=== PATIENT | male | born 1960 | race African-American/Black ===

== ENCOUNTER 2016-08-15 18:05 | Emergency (ER) | payer MEDICAID ==
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
[2016-08-15 19:31] LABS: ABSOLUTE BASOPHILS # (AUTO) 0.1 10^3/uL (0.0-0.2); ABSOLUTE EOSINOPHILS # (AUTO) 0.2 10^3/uL (0.0-0.6); ABSOLUTE LYMPHOCYTES (AUTO) 2.6 10^3/uL (0.5-4.7); ABSOLUTE MONOCYTES (AUTO) 0.6 10^3/uL (0.1-1.4); ABSOLUTE NEUT (AUTO) 3.9 10^3/uL (1.7-8.2); BASOPHILS % (AUTO) 1.3 % (0-2); EOSINOPHILS % (AUTO) 3.1 % (0-6); HEMATOCRIT 40.9 % (37.9-51.0); HEMOGLOBIN 13.4 g/dL (13.5-17.0); HGB HCT DIFFERENCE -0.7; LYMPHOCYTES % (AUTO) 34.7 % (13-45); MEAN CORPUSCULAR HEMOGLOBIN 28.5 pg (27.0-33.4); MEAN CORPUSCULAR HGB CONC 32.7 g/dL (32.0-36.0); MEAN CORPUSCULAR VOLUME 87 fl (80-97); MONOCYTES % (AUTO) 7.8 % (3-13); RED CELL DISTRIBUTION WIDTH 14.5 % (11.5-14.0); SEGMENTED NEUTROPHILS % (AUTO) 53.1 % (42-78); WHITE BLOOD COUNT 7.4 10^3/uL (4.0-10.5)
[2016-08-15 19:48] LABS: ALANINE AMINOTRANSFERASE 44 U/L (21-72); ALBUMIN 4.6 g/dL (3.5-5.0); ALKALINE PHOSPHATASE 74 U/L (38-126); ANION GAP 11 (5-19); ASPARTATE AMINO TRANSFERASE 28 U/L (17-59); BILIRUBIN,TOTAL 0.6 mg/dL (0.2-1.3); BLOOD UREA NITROGEN 18 mg/dL (7-20); CALCIUM 9.9 mg/dL (8.4-10.2); CARBON DIOXIDE 29 mmol/L (22-30); CHLORIDE 103 mmol/L (98-107); CREATININE RESULT 0.88 mg/dL (0.52-1.25); GLUCOSE 214 mg/dL (75-110); LIPASE 86.3 U/L (23-300); POTASSIUM 4.5 mmol/L (3.6-5.0); SODIUM 142.5 mmol/L (137-145); TOTAL PROTEIN 7.6 g/dL (6.3-8.2)
--- NOTE | 2016-08-15 22:14 | ER Document Report ---
ED Blood Sugar Problem - General Mode of Arrival: Ambulatory Information source: Patient TRAVEL OUTSIDE OF THE [place] IN LAST 30 DAYS: No - HPI Patient complains to provider of: hyperglycemia Onset: This afternoon Associated symptoms: Other - see above <ARTURO SALCIDO - Last Filed: 08/15/16 23:28> - General Mode of Arrival: Ambulatory TRAVEL OUTSIDE OF THE [place] IN LAST 30 DAYS: No <YAHAIRA OVIEDO - Last Filed: 08/16/16 03:49> - General Chief Complaint: High Blood Sugar Stated Complaint: SLUGGISH,EYES BURNING Notes: 56-year-old male presents to the ED complaining of hyperglycemia which he noticed earlier today. Patient states that he was feeling sluggish yesterday and noticed that his blood sugar was around 400. Patient took 1 or 2 old metformin pills and his blood sugar came down to 220. Patient states that his blood sugar usually stays around 129 when he checks, but states that he does not checked often. Patient is additionally complaining of bilateral foot pain and tingling to the soles of his feet. Patient denies cough, congestion, dysuria, abdominal pain, vomiting, and diarrhea. Patient states that he went to an urgent care earlier today and was told to come to the emergency department instead. Patient states that the urgent care is currently his primary care. (ARTURO SALCIDO) - Related Data Allergies/Adverse Reactions: No Known Allergies Allergy (Verified 08/15/16 18:39) Past Medical History - General Information source: Patient - Social History Smoking Status: Current Every Day Smoker Chew tobacco use (# tins/day): No Frequency of alcohol use: None Drug Abuse: None Family History: Reviewed & Not Pertinent Patient has suicidal ideation: No Patient has homicidal ideation: No - Past Medical History Cardiac Medical History: Reports: Hx Hypertension <ARTURO SALCIDO - Last Filed: 08/15/16 23:28> - General Information source: Patient - Social History Smoking Status: Current Every Day Smoker Chew tobacco use (# tins/day): No Frequency of alcohol use: None Drug Abuse: None Family History: Reviewed & Not Pertinent Patient has suicidal ideation: No Patient has homicidal ideation: No - Past Medical History Cardiac Medical History: Reports: Hx Hypertension Renal/ Medical History: Denies: Hx Peritoneal Dialysis - Immunizations Hx Diphtheria, Pertussis, Tetanus Vaccination: Yes <YAHAIRA OVIEDO - Last Filed: 08/16/16 03:49> Review of Systems - Review of Systems Constitutional: No symptoms reported EENT: No symptoms reported Cardiovascular: No symptoms reported Respiratory: No symptoms reported. denies: Cough Gastrointestinal: No symptoms reported. denies: Abdominal pain, Diarrhea, Vomiting Genitourinary: No symptoms reported. denies: Dysuria Male Genitourinary: No symptoms reported Musculoskeletal: See HPI, Other - bilateral foot pain and tingling to the soles of his feet Skin: No symptoms reported Hematologic/Lymphatic: No symptoms reported Neurological/Psychological: See HPI, Tingling - bilateral tingling sensation to the soles of the feet -: Yes All other systems reviewed and negative <ARTURO SALCIDO - Last Filed: 08/15/16 23:28> Physical Exam - Vital signs Interpretation: Normal - General General appearance: Alert In distress: None - HEENT Head: Normocephalic, Atraumatic Eyes: Normal Extraocular movements intact: Yes Pupils: PERRL - Respiratory Respiratory status: No respiratory distress Breath sounds: Normal - Cardiovascular Rhythm: Regular Heart sounds: Normal auscultation - Abdominal Inspection: Normal - Back Back: Normal - Extremities General upper extremity: Normal inspection, Normal ROM General lower extremity: Normal ROM. No: Normal inspection - see neuro exam below Foot: No: Normal - see neuro exam below - Neurological Neuro grossly intact: Yes Cognition: Normal Orientation: AAOx4 Daniel Coma Scale Eye Opening: Spontaneous Daniel Coma Scale Verbal: Oriented [place] Coma Scale Motor: Obeys Commands [place] Coma Scale Total: 15 Speech: Normal Sensory: Other - altered sensation to soles of feet bilaterally. No: Normal - Psychological Associated symptoms: Normal affect, Normal mood - Skin Skin Temperature: Warm Skin Moisture: Dry Skin Color: Normal <ARTURO SALCIDO - Last Filed: 08/15/16 23:28> Course - Laboratory Result Diagrams: 08/15/16 19:05 08/15/16 19:05 <ARTURO SALCIDO - Last Filed: 08/15/16 23:28> - Laboratory Result Diagrams: 08/15/16 19:05 08/15/16 19:05 <YAHAIRA OVIEDO - Last Filed: 08/16/16 03:49> - Re-evaluation Re-evalutation: 08/15 Patient is a 56-year-old male who comes in with hyperglycemia. Patient will be restarted on his metformin. Patient has been educated about counting carbohydrates and avoiding simple sugars. Patient will also be started on gabapentin at night for his neuropathy. He is to follow-up with the primary care doctor. Understands agrees with plan. Stable for discharge home. No evidence for infection anywhere. (YAHAIRA OVIEDO) - Vital Signs Vital signs: Temp Pulse Resp BP Pulse Ox 97.6 F 82 16 140/79 H 99 08/15/16 18:30 08/15/16 22:20 08/15/16 22:20 08/15/16 22:20 08/15/16 22:20 (ARTURO SALCIDO) (YAHAIRA OVIEDO) - Laboratory Laboratory results interpreted by me: 08/15/16 08/15/16 08/15/16 19:01 19:05 19:05 Hgb 13.4 L RDW 14.5 H Glucose 214 H POC Glucose 211 H (ARTURO SLACIDO) (YAHAIRA OVIEDO) Discharge <ARTURO SALCIDO - Last Filed: 08/15/16 23:28> <YAHAIRA OVIEDO - Last Filed: 08/16/16 03:49> - Discharge Clinical Impression: Hyperglycemia due to type 2 diabetes mellitus Qualifiers: Diabetes mellitus fci insulin use: without fci use Qualified Code(s ): E11.65 - Type 2 diabetes mellitus with hyperglycemia Condition: Stable Disposition: HOME, SELF-CARE Instructions: Diabetes ([facility]), High Blood Pressure ([facility]), Family Physicians / Practices Prescriptions: Gabapentin 300 mg PO QHS #30 capsule Lisinopril 10 mg PO QHS #30 tablet Metformin HCl [Glucophage] 500 mg PO BID #60 tablet Forms: Return to Work Scribe Attestation: 08/16/16 03:49 I personally performed the services described in the documentation, reviewed and edited the documentation which was dictated to the scribe in my presence, and it accurately records my words and actions. (YAHAIRA OVIEDO) Scribe Documentation - Scribe Written by Hortensiaibe:: Leila Be, 08/15/2016 23:28 acting as scribe for :: Mary <ARTURO SALCIDO - Last Filed: 08/15/16 23:28>
[2016-08-15 22:20] VITALS: BP 140/79
== END 2016-08-15 22:20 | disposition home or self-care (01) ==
LOC: ER 18:05
DX: E11.65 Type 2 diabetes mellitus with hyperglycemia (principal); M79.672 Pain in left foot; M79.671 Pain in right foot; F17.210 Nicotine dependence, cigarettes, uncomplicated
CPT/HCPCS: 36415; 80053; 82962; 83690; 85025; 87086; 99283

== ENCOUNTER 2017-03-24 22:28 | Emergency (ER) | payer SELFPAY ==
[2017-03-24 23:06] VITALS: BP 144/87
[2017-03-24] MEDS ORDERED: CIPROFLOXACIN HCL/DEXAMETH OTIC DROP 7.5 ML AS ONE (23:32)
--- NOTE | 2017-03-24 23:33 | ER Document Report ---
ED General - General Chief Complaint: Ear Pain Stated Complaint: PAIN IN LEFT EAR Time Seen by Provider: 03/24/17 23:25 Notes: Patient is a 56-year-old male with past medical history of diabetes who presents with 1 week of left ear pain. He does described as a dull, constant, aching pain. He has tried flushing with hydrogen peroxide without improvement of the pain. Nothing worsens the pain. He states that this did start after he felt he had developed a sinus infection with a persistent draining left nostril and pain over the left maxillary sinus. States that then this moved into his left ear and has gotten worse since that time. He notes that he has diminished hearing on that side. He also believes he has had some blood draining from the ear. He denies any fever or constitutional symptoms. He has not seen a primary care doctor regarding today's concerns. TRAVEL OUTSIDE OF THE [place] IN LAST 30 DAYS: No - Related Data Allergies/Adverse Reactions: No Known Allergies Allergy (Verified 08/15/16 18:39) Past Medical History - General Information source: Patient - Social History Smoking Status: Current Every Day Smoker Frequency of alcohol use: None Drug Abuse: None Family History: Reviewed & Not Pertinent Patient has suicidal ideation: No Patient has homicidal ideation: No - Past Medical History Cardiac Medical History: Reports: Hx Hypertension Renal/ Medical History: Denies: Hx Peritoneal Dialysis - Immunizations Hx Diphtheria, Pertussis, Tetanus Vaccination: Yes Review of Systems - Review of Systems Notes: Constitutional: Negative for fever. HENT: Positive for left ear pain Eyes: Negative for visual changes. Cardiovascular: Negative for chest pain. Respiratory: Negative for shortness of breath. Gastrointestinal: Negative for abdominal pain, vomiting or diarrhea. Genitourinary: Negative for dysuria. Musculoskeletal: Negative for back pain. Skin: Negative for rash. Neurological: Negative for headaches, weakness or numbness. 10 point ROS negative except as marked above and in HPI. Physical Exam - Vital signs Vitals: Temp Pulse Resp BP Pulse Ox 69 F L 69 18 144/87 H 98 03/24/17 23:03 03/24/17 23:03 03/24/17 23:03 03/24/17 23:03 03/24/17 23:03 Interpretation: Hypertensive Notes: PHYSICAL EXAMINATION: GENERAL: Well-appearing, well-nourished and in no acute distress. HEAD: Atraumatic, normocephalic. EYES: sclera anicteric, conjunctiva are normal. ENT: Moist mucous membranes. The left TM is initially obscured by what appears to be a scab in the ear canal. This was removed and the TM was able to visualize. There is an apparent purulent effusion and what appears to be a tympanic membrane perforation. Right TM is clear. No pain over the mastoids bilaterally. NECK: Normal range of motion. No cervical or submandibular lymphadenopathy. LUNGS: Normal work of breathing HEART: 2+ radial pulses bilaterally EXTREMITIES: no pitting or edema. No cyanosis. NEUROLOGICAL: No focal neurological deficits. Moves all extremities spontaneously and on command. PSYCH: Normal mood, normal affect. SKIN: Warm, Dry, normal turgor, no rashes or lesions noted. Course - Re-evaluation Re-evalutation: 03/24/17 23:29 Patient presents with left ear pain as well as loss of hearing. Otoscopic examination does show a clot in the left ear that initially precludes appropriate assessment of the tympanic membrane. After removal of the clot and irrigation of the canal, the TM was visualized and appears to have a purulent effusion with a likely associated perforation which would explain the clot and blood in the ear canal. Suspect likely initial infectious source given patient' s medical history. He is otherwise well in appearance. Remainder of exam is unremarkable. No pain over the mastoid. Will start on oral antibiotics and Ciprodex drops. At this time will discharge with return precautions and follow- up recommendations. Verbal discharge instructions given a the bedside and opportunity for questions given. Medication warnings reviewed. Patient is in agreement with this plan and has verbalized understanding of return precautions and the need for primary care follow-up in the next 24-72 hours. - Vital Signs Vital signs: Temp Pulse Resp BP Pulse Ox 69 F L 69 18 144/87 H 98 03/24/17 23:03 03/24/17 23:03 03/24/17 23:03 03/24/17 23:03 03/24/17 23:03 Discharge - Discharge Clinical Impression: Left otitis media with spontaneous rupture of eardrum Condition: Good Disposition: HOME, SELF-CARE Additional Instructions: Please take the eardrops, 3 drops twice daily in the left ear. Take the amoxicillin as prescribed until completed. He may take ibuprofen per box instructions as needed for pain. Follow-up with an ear nose and throat doctor particular your symptoms are not improving within the next 1 week. Return if you develop fever, weakness, numbness, severe headache, worsening of your pain, or any other symptoms that are worrisome to you. Prescriptions: Amoxicillin Trihydrate [Amoxil 500 mg Capsule] 500 mg PO TID #30 cap
== END 2017-03-24 23:43 | disposition home or self-care (01) ==
LOC: ER 22:28
DX: H66.92 Otitis media, unspecified, left ear (principal); H72.92 Unspecified perforation of tympanic membrane, left ear; F17.200 Nicotine dependence, unspecified, uncomplicated; I10 Essential (primary) hypertension
CPT/HCPCS: 99282; J3490

== ENCOUNTER 2019-06-18 20:16 | Emergency (ER) | payer SELFPAY ==
[2019-06-18] MEDS ORDERED: NORMAL SALINE 1000 ML 1,000 ML IV ONE (20:33)
--- NOTE | 2019-06-18 20:35 | ER Document Report ---
ED Medical Screen (RME) - General Stated Complaint: BLOOD SUGAR HIGH Time Seen by Provider: 06/18/19 20:24 Mode of Arrival: Ambulatory Information source: Patient Notes: Patient presents complaining of urinary frequency for the past 2 weeks. Patient reports increased thirst as well. Patient reports history of diabetes although he has been off of his metformin for several months as he did not feel that he needed the medication anymore. Patient reports checking his blood sugar this evening it was over 500. Patient denies any abdominal tenderness nausea or vomiting. I have greeted and performed a rapid initial assessment of this patient. A comprehensive ED assessment and evaluation of the patient, analysis of test results and completion of the medical decision making process will be conducted by additional ED providers. TRAVEL OUTSIDE OF THE [place] IN LAST 30 DAYS: No - Related Data Allergies/Adverse Reactions: No Known Allergies Allergy (Verified 08/15/16 18:39) Past Medical History - Past Medical History Cardiac Medical History: Reports: Hx Hypertension Renal/ Medical History: Denies: Hx Peritoneal Dialysis - Immunizations Hx Diphtheria, Pertussis, Tetanus Vaccination: Yes Physical Exam - Vital signs Vitals: Temp Pulse Resp BP Pulse Ox 97.8 F 86 16 155/83 H 99 06/18/19 20:21 06/18/19 20:21 06/18/19 20:21 06/18/19 20:21 06/18/19 20:21 - General General appearance: Appears well, Alert In distress: None - Abdominal Tenderness: Nontender Course - Vital Signs Vital signs: Temp Pulse Resp BP Pulse Ox 97.8 F 86 16 155/83 H 99 06/18/19 20:21 06/18/19 20:21 06/18/19 20:21 06/18/19 20:21 06/18/19 20:21
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
[2019-06-18 21:13] LABS: ABSOLUTE BASOPHILS # (AUTO) 0.1 10^3/uL (0.0-0.2); ABSOLUTE EOSINOPHILS # (AUTO) 0.2 10^3/uL (0.0-0.6); ABSOLUTE LYMPHOCYTES (AUTO) 2.1 10^3/uL (0.5-4.7); ABSOLUTE MONOCYTES (AUTO) 0.6 10^3/uL (0.1-1.4); ABSOLUTE NEUT (AUTO) 3.4 10^3/uL (1.7-8.2); BASOPHILS % (AUTO) 1.1 % (0-2); EOSINOPHILS % (AUTO) 2.4 % (0-6); HEMATOCRIT 40.2 % (37.9-51.0); HEMOGLOBIN 13.6 g/dL (13.5-17.0); LYMPHOCYTES % (AUTO) 32.7 % (13-45); MEAN CORPUSCULAR HEMOGLOBIN 29.4 pg (27.0-33.4); MEAN CORPUSCULAR HGB CONC 33.7 g/dL (32.0-36.0); MEAN CORPUSCULAR VOLUME 87 fl (80-97); MONOCYTES % (AUTO) 9.4 % (3-13); PLATELET COUNT 167 10^3/uL (150-450); RED CELL DISTRIBUTION WIDTH 13.8 % (11.5-14.0); SEGMENTED NEUTROPHILS % (AUTO) 54.4 % (42-78); TOTAL CELLS COUNTED % (AUTO) 100 %; VENOUS BLOOD BASE EXCESS 1.3 mmol/L; VENOUS BLOOD PCO2 41.6 mmHg (35-63); VENOUS BLOOD PH 7.41 (7.30-7.42); WHITE BLOOD COUNT 6.3 10^3/uL (4.0-10.5)
[2019-06-18 21:27] LABS: APPEARANCE,URINE SLIGHTLY-CLOUDY; BILIRUBIN,URINE NEGATIVE (NEGATIVE); COLOR,URINE STRAW; GLUCOSE, URINE >=500 mg/dL (NEGATIVE); KETONES,URINE NEGATIVE (NEGATIVE); LEUKOCYTE ESTERASE,URINE LARGE (NEGATIVE); NITRITE,URINE NEGATIVE (NEGATIVE); PROTEIN,URINE NEGATIVE (NEGATIVE); URINE SPECIFIC GRAVITY 1.032; UROBILINOGEN,URINE NEGATIVE mg/dL (<2.0)
[2019-06-18 21:29] LABS: ALBUMIN 4.3 g/dL (3.5-5.0); ALKALINE PHOSPHATASE 148 U/L (38-126); ANION GAP 14 (5-19); ASPARTATE AMINO TRANSFERASE 21 U/L (17-59); BILIRUBIN,DIRECT 0.2 mg/dL (0.0-0.4); BILIRUBIN,TOTAL 0.6 mg/dL (0.2-1.3); BLOOD UREA NITROGEN 17 mg/dL (7-20); CALCIUM 9.6 mg/dL (8.4-10.2); CARBON DIOXIDE 25 mmol/L (22-30); CHLORIDE 96 mmol/L (98-107); POTASSIUM 4.3 mmol/L (3.6-5.0); TOTAL PROTEIN 7.7 g/dL (6.3-8.2)
[2019-06-18] MEDS ORDERED: RINGERS SOLUTION,LACTATED 1,000 ML IV ONE (21:38)
[2019-06-18 21:42] LABS: GLUCOSE 600 mg/dL (75-110)
[2019-06-19 00:13] LABS: CHLAM PCR NOT DETECTED (NOT DETECT)
[2019-06-19 01:36] VITALS: BP 124/62
[2019-06-19 02:16] LABS: APPEARANCE,URINE SLIGHTLY-CLOUDY; BILIRUBIN,URINE NEGATIVE (NEGATIVE); COLOR,URINE YELLOW; GLUCOSE, URINE >=500 mg/dL (NEGATIVE); KETONES,URINE TRACE mg/dL (NEGATIVE); LEUKOCYTE ESTERASE,URINE LARGE (NEGATIVE); NITRITE,URINE NEGATIVE (NEGATIVE); PROTEIN,URINE 30 mg/dL (NEGATIVE); URINE SPECIFIC GRAVITY 1.037; UROBILINOGEN,URINE NEGATIVE mg/dL (<2.0)
[2019-06-19 02:17] LABS: ADD MANUAL MICROSCOPIC YES
[2019-06-19 02:18] LABS: TRICHOMONAS,URINE PRESENT
[2019-06-19 02:19] LABS: BACTERIA,URINE 1+ /HPF
== END 2019-06-19 01:51 | disposition home or self-care (01) ==
LOC: ER 20:16
DX: E11.65 Type 2 diabetes mellitus with hyperglycemia (principal); T38.3X6A Underdosing of insulin and oral hypoglycemic [antidiabetic] drugs, initial encounter; Z91.128 Patient's intentional underdosing of medication regimen for other reason; Z91.14 Patient's other noncompliance with medication regimen; N39.0 Urinary tract infection, site not specified; I10 Essential (primary) hypertension; F17.200 Nicotine dependence, unspecified, uncomplicated; Z71.6 Tobacco abuse counseling
CPT/HCPCS: 99283; 96360; 36415; 87086; 82962; 85025; 80053; 81001; 87491; 87591; 82803; J7030; J7120